=== PATIENT | female | born 1985 | race Hispanic/Latino ===

== ENCOUNTER → 2018-07-16 13:33 | Outpatient (CLI) | payer SELFPAY ==
[2018-07-16 10:24] VITALS: BMI 28.3
[2018-07-19 09:30] LABS: HPV APTIMA, High Risk Negative (Negative)
== END ==
PROVIDERS: Referring Provider Nurse Practitioner Women's Health; Visit Provider Nurse Practitioner Women's Health
DX: Z12.4 Encounter for screening for malignant neoplasm of cervix (principal)
CPT/HCPCS: 87624; 88175; G0145

== ENCOUNTER → 2022-11-21 | Outpatient (CLI) | payer SELFPAY ==
[2022-11-21 12:28] LABS: Absolute Lymphocyte Count 2.18 X10^3/uL (0.83-4.51); Absolute Neutrophil Count 4.7 X10^3/uL (2.0-7.7); Basophil# 0.05 X10^3/uL; Basophil% 0.7 % (0-1); Eosinophil# 0.11 X10^3/uL; Eosinophils% 1.5 % (0-5); Hematocrit 43.1 % (37-47); Hemoglobin 14.3 g/dL (12.0-15.0); Lymphocyte # 2.18 X10^3/ul (0.83-4.51); Lymphocyte % 28.9 % (19-41); Mean Corp Hgb Conc 33.2 g/dL (32-36); Mean Corpuscular Hgb 30.2 pg (27.0-32.0); Mean Corpuscular Volume 90.9 fL (81-99); Mean Platelet Vol. 9.4 fl (6.2-12.0); Monocyte# 0.43 X10^3/uL; Monocyte% 5.7 % (0-10); NRBC Flagged by Analyzer 0 % (0-5); Neutrophil # 4.73 X10^3/uL (2.7-7.7); Neutrophil % 62.7 % (47-70); Platelet Count 356 K/mm3 (150-450); RBC Distribution Width CV 12.3 % (11.6-14.6); RBC Distribution Width SD 40.9 fl (35.1-43.9); Red Blood Count 4.74 M/mm3 (4.2-5.4); White Blood Count 7.5 K/mm3 (4.4-11.0)
[2022-11-21 12:37] LABS: Partial Thromboplast Time 28.7 Seconds (24.1-36.2); Prothrombin Time (Protime)PT. 12.7 SECONDS (11.7-14.9)
[2022-11-21 12:42] LABS: Internal QC Validated? YES +Cl - CLEAR BKGD; Pregnancy, Serum, hCG Quali. NEGATIVE Negative
[2022-11-21 13:17] LABS: ALB/GLOB Ratio 1.1 RATIO (0.9-2.4); AST(SGOT) 9 U/L (15-37); Alanine Aminotransfer ALT/SGPT 15 U/L (13-56); Alkaline Phosphatase 81 U/L (45-117); Anion Gap 6 (5-15); BUN 12 mg/dL (7-18); BUN/Creat Ratio 18.9 RATIO (10-20); Chloride 108 mmol/L (98-107); Creatinine, Serum 0.63 mg/dL (0.55-1.02); EST Glomerular Filtration Rate 112 mL/min (>60); Est Glom Filt Rate - Afr Amer 136 mL/min (>60); Globulin 3.6 g/dL (2.2-4.2); Glucose 89 mg/dL (74-106); Potassium 3.8 mmol/L (3.5-5.1); Protein, Total 7.6 g/dL (6.4-8.2); Sodium Level 138 mmol/L (136-145)
[2022-11-21 13:19] LABS: HIV - WCH Non-Reactive (Nonreactive)
== END | disposition home or self-care (01) ==
LOC: BIMLAB 08:54
PROVIDERS: Visit Provider Internal Medicine
DX: Z01.818 Encounter for other preprocedural examination (principal)
CPT/HCPCS: 36415; 80053; 84703; 85025; 85610; 85730; 86703

== ENCOUNTER 2024-06-12 15:29 | Emergency (ER) | payer SELFPAY ==
[2024-06-12 15:29] VITALS: BP 150/101; PULSE 85; RESP 18; TEMP 36.4; O2SAT 100; BMI 29.9
--- NOTE | 2024-06-12 15:44 | EDS_ITS ---
HPI HPI - Female History of Present Illness Chief Complaint: Vag Bleeding Informant: patient Narrative Narrative: 38-year-old female patient of Dr. Corado presenting to the emergency room with vaginal bleeding. Patient states that she was taking a shower when she noticed she was experiencing some vaginal bleeding. She states that she has had multiple clots and the bleeding is heavy. She states that she used a super tampon under 15 minutes. Patient has not had a period for some time. She states that she has an IUD in place that was originally placed March 2019. She has an appointment in July to have it changed. She states that she developed lightheaded and had a sharp pain momentarily in the right lower pelvis. She states that she will take any other medications. PFSH PFSH Home Medications ?Medication ?Instructions ?Recorded ?Last Taken ?Type levonorgestrel (Mirena) 1 insert intrauterine ONCE 07/16/18 Unknown History diphenoxylate-atropine 2.5 1 tab PO BID PRN diarrhea #4 tabs 03/14/23 Unknown Rx mg-0.025 mg tablet (Lomotil) Allergy/AdvReac Type Severity Reaction Status Date / Time No Known Allergies Allergy Verified 06/12/24 15:29 Family History Mother Diabetes Hypertension Grandmother Diabetes Hypertension Grandfather Age related osteoporosis Son Depression Mental disorder Father Hypercholesterolemia Surgical History No pertinent past surgical history Social History household members: spouse number of children: 3 current occupational status: employed current occupation: [employer] Smoking Status: Never smoker Electronic Cigarette Use: not used alcohol intake: current alcohol intake frequency: holidays/special occasions only Alcohol type: wine substance use type: does not use seatbelt use: always do you feel safe at home: Yes additional social history: [facility] ED Constitutional Constitutional ED: Denies chills, fever(s) or weight loss Eyes Eyes: Denies change in vision or diplopia ENT ENT ED: Denies ear pain, rhinorrhea or sore throat Cardiovascular Cardiovascular: Denies chest pain, orthopnea, palpitations or racing heartbeat Respiratory/Chest Respiratory/Chest: Denies cough, dyspnea or orthopnea Gastrointestinal Gastrointestinal: Denies abdominal pain, diarrhea, nausea or vomiting Genitourinary Genitourinary ED: Reports other Details: Vaginal bleeding ; Denies dysuria, hematuria or urinary frequency Musculoskeletal Musculoskeletal: Denies arthralgias or myalgias Integumentary Denies abscess or rash Neurologic Neurologic: Denies headache(s) or weakness Psychiatric Psychiatric: Denies anxiety, depression, suicidal ideation or suicidal thoughts Endocrine Endocrinology: Denies polydipsia, polyphagia or polyuria Allergic/Immunologic Allergic/Immunologic ED: Denies mouth swelling, tongue swelling or urticaria EXAM Physical Exam Const Vital Signs: 06/12/24 15:29 Temperature 97.6 F L Temperature Source Temporal Pulse Rate 85 Respiratory Rate 18 Blood Pressure 150/101 H Blood Pressure Mean 117 Pulse Ox 100 Oxygen Delivery Method Room Air Positive well nourished and well developed General Appearance ED: well developed HEENT Reports normocephalic, head/scalp atraumatic and moist mucous membranes Eyes PERRL and EOMs intact bilaterally General Eye ED: Negative for pale conjunctiva Neck no lymphadenopathy, supple and no JVD Resp normal respiratory effort and clear to auscultation bilaterally Cardio regular rate, regular rhythm and no murmurs GI normal to inspection, nondistended, normoactive bowel sounds and non-tender Palpation: soft Narrative: Pelvic examination performed with female nurse (Sarah Mcqueen). Back/Spine no CVA tenderness and normal ROM Extremity normal to inspection General Extremety ED: Negative for edema General Extremity: Negative for edema Neuro oriented x3 and CN's II-XII intact bilaterally Sensorium / Orientation: alert Motor Exam: strength 5/5 throughout Psych mental status grossly normal Mood & Affect: Negative for depressed or tearful Skin no rashes or lesions noted and no wounds MDM MDM MDM Narrative Medical decision making narrative: Differential diagnosis includes but not limited to dysfunctional uterine bleeding anemia uterine fibroids complications IUD complications Patient's hemoglobin 15 platelet count 388 test is negative. Pelvic ultrasound was obtained which demonstrates a large uterine fibroid. IUD is visualized but not fully. Case was discussed with on-call automation tender Dr. Roper who is covering for the patient's automation tender Dr. Corado. He recommends that the patient call the office tomorrow and be evaluated. The above was discussed with the patient History & Record Review Discussion w/independent historian: Patient Lab Data Attestation: I reviewed the patient's lab results. Labs: Laboratory Results - last 24 hr 06/12/24 15:40 WBC 8.0 RBC 4.92 Hgb 15.0 Hct 44.0 MCV 89.4 MCH 30.5 MCHC 34.1 RDW Std Deviation 39.9 RDW Coeff of Aisha 12.4 Plt Count 380 MPV 9.0 Immature Gran % (Auto) 0.400 Neut % (Auto) 54.6 Lymph % (Auto) 35.0 Schley % (Auto) 7.3 Eos % (Auto) 2.1 Baso % (Auto) 0.6 Absolute Neuts (auto) 4.4 Absolute Lymphs (auto) 2.79 Nucleated RBC % 0 Serum , Qual NEGATIVE Radiography Diagnostic Testing: Clinical Impression(s) from Imaging Studies Transvaginal US 06/12/24 16:08 IMPRESSION: Large fibroid. IUD partially imaged. Location unclear. Electronically Signed: Heriberto Cortes MD at 17:20 EST Reading Location ID and State: [facility] / [place] Tel , Service support , Discharge Plan Triage Chief Complaint: Vag Bleeding ED Provider: Jose Malave Dx/Rx/DC Orders Clinical Impression: Uterine fibroid, Abnormal vaginal bleeding Instructions: ED Uterine Fibroids Prescriptions: No Action Mirena 20 mcg/24 hr (5 years) intrauterine device 1 insert Intrauterine ONCE diphenoxylate-atropine [Lomotil] 2.5-0.025 mg tablet 1 tab PO BID PRN (Reason: diarrhea) Qty: 4 0RF Primary Care Provider: Heydi Crawford Referrals: Heydi Crawford MD [Primary Care Provider] - Activity Restrictions/Additional Instructions: It was reported to me that Dr. Corado will be in the office tomorrow. Please call the office at 0830 hrs. and inform them that we had spoke with Dr. Roper and recommendation was that you be seen in follow-up for this visit. Print Language: Zambian Disposition Disposition: Home, Self Care
[2024-06-12 16:08] LABS: Absolute Lymphocyte Count 2.79 X10^3/uL (0.83-4.51); Absolute Neutrophil Count 4.4 X10^3/uL (2.0-7.7); Basophil# 0.05 X10^3/uL; Basophil% 0.6 % (0-1); Eosinophil# 0.17 X10^3/uL; Eosinophils% 2.1 % (0-5); Lymphocyte # 2.79 X10^3/ul (0.83-4.51); Mean Corp Hgb Conc 34.1 g/dL (32-36); Mean Corpuscular Hgb 30.5 pg (27.0-32.0); Mean Corpuscular Volume 89.4 fL (81-99); Monocyte# 0.58 X10^3/uL; Monocyte% 7.3 % (0-10); NRBC Flagged by Analyzer 0 % (0-5); Neutrophil # 4.36 X10^3/uL (2.7-7.7); Neutrophil % 54.6 % (47-70); Platelet Count 380 K/mm3 (150-450); RBC Distribution Width CV 12.4 % (11.6-14.6); RBC Distribution Width SD 39.9 fl (35.1-43.9); Red Blood Count 4.92 M/mm3 (4.2-5.4)
--- NOTE | 2024-06-12 16:08 | US_ITS ---
STUDY: ULTRASOUND TRANSVAGINAL CLINICAL: Female, 38 years old. vaginal bleeding IUD+ TECHNIQUE: Transvaginal COMPARISON: None. FINDINGS: Normal uterine size measuring 9.7 x 8.3 x 7.8 cm in maximal craniocaudal dimension. There are no myometrial masses. Endometrium not well visualized. IUD is partially imaged and partially obscured by a large fibroid measuring 6 x 6.5 x 5.4 cm. IUD location is not well visualized. Normal uterine cervix. Normal right ovary, measuring 3.1 x 2.1 x 1.6 cm. There are multiple follicles without a dominant cyst. Normal left ovary, measuring 2 x 1.7 x 2.7 cm. There are multiple follicles without a dominant cyst. There is no free fluid in the pelvis. Polycystic ovary disease: No. US/Transvaginal Non- IMPRESSION: Large fibroid. IUD partially imaged. Location unclear. Electronically Signed: Heriberto Cortes MD at 17:20 EST ,
[2024-06-12 16:24] LABS: Internal QC Validated? YES +Cl - CLEAR BKGD; Pregnancy, Serum, hCG Quali. NEGATIVE Negative
[2024-06-12 17:29] VITALS: BP 139/89; PULSE 74; RESP 16; O2SAT 97
[2024-06-12 18:04] VITALS: BP 139/89; PULSE 74; RESP 16; TEMP 36.6; O2SAT 97
== END 2024-06-12 18:04 | disposition home or self-care (01) ==
PROVIDERS: Emergency Provider Emergency Medicine; PCP Internal Medicine; Referring Provider Emergency Medicine; Visit Provider Emergency Medicine
DX: N93.9 Abnormal uterine and vaginal bleeding, unspecified (principal); D25.9 Leiomyoma of uterus, unspecified
CPT/HCPCS: 76830; 84703; 85025; 99283; A4216